=== PATIENT | male | born 1980 | race Caucasian/White ===

== ENCOUNTER 2017-04-27 09:58 | Emergency (ER) | payer SELFPAY ==
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
== END 2017-04-27 17:05 | disposition home or self-care (01) ==
LOC: ER 09:58
DX: S40.012A Contusion of left shoulder, initial encounter (principal); F17.210 Nicotine dependence, cigarettes, uncomplicated; V18.0XXA Pedal cycle driver injured in noncollision transport accident in nontraffic accident, initial encounter